=== PATIENT | female | born 1985 | race African-American/Black ===

== ENCOUNTER 2024-12-10 20:52 | Emergency (ER) | payer OTHER ==
[~2024-12-10] VITALS: Ht 167.6 cm; Wt 102.3 kg
[2024-12-10 21:03] VITALS: TEMP 97.9
[2024-12-11] MEDS: ACETAMINOPHEN 500 MG TABLET PO ONE (00:06)
[2024-12-11] MEDS: IBUPROFEN 600 MG TABLET PO ONE (00:06)
[2024-12-11] MEDS ORDERED: IBUP-1492 PO (00:21)
[2024-12-11] MEDS ORDERED: ACET-3385 PO (00:21)
[2024-12-11 00:29] VITALS: BP 141/78; PULSE 89; RESP 20; O2SAT 100
== END 2024-12-11 01:08 | disposition home or self-care (01) ==
LOC: EMS 20:52
DX: M25.571 Pain in right ankle and joints of right foot (principal); F17.210 Nicotine dependence, cigarettes, uncomplicated
CPT/HCPCS: 29515; 99283